=== PATIENT | male | born 1945 | race Asian ===

== ENCOUNTER 2018-08-29 11:15 | Outpatient (RCR) | payer OTHER, SELFPAY ==
--- NOTE | 2018-08-15 11:11 | PT.OIE ---
Current Diagnoses Benign paroxysmal vertigo, right ear (08/15/18) Benign paroxysmal vertigo, left ear (08/15/18) Dizziness and giddiness (08/15/18) Provider Visit Care Team Role Provider Type Sumanth Acevedo MD Primary Care Provider Non-Staff Specialty: Family Practice Address: [address] [place] [address], [address], [place], [address] Email: Ziyad Perales MD Attending Provider Physician Specialty: Ear, Nose, Throat Address: [address] [place] [address], [address] Email: Physical Therapy Initial Evaluation PT-OP-A Visit Information Start: 08/15/18 10:43 Freq: Status: Active Protocol: Document 08/15/18 09:45 DCW (Rec: 08/15/18 11:11 DCW [id number]) Out-Patient Physical Therapy Visit Information Visit Information Visit Type Initial Evaluation Visit Start Time 09:45 Visit Stop Time 10:30 Total Visit Minutes 45 Visit Number 1 Number of OFFICE SERVICES ASSOCIATE Visits 0 Evaluation Information Evaluation Date 08/15/18 PT-OP-B Current Condition Start: 08/15/18 10:43 Freq: Status: Active Protocol: Document 08/15/18 09:45 DCW (Rec: 08/15/18 11:11 DCW [id number]) Current Condition History of Current Condition Onset Date one year Current Complaints Position-dependent vertigo History of Current Condition Pt is a 72 year old male complaining of a one year history of motion-induced vertigo. Pt reports episodes last a few seconds. Symptoms are provoked by laying down or turning in bed. Pt reports that approximately once a month, he has episodes of dizziness, with each episode lasting a few seconds, but the overall dizziness with movement lasting for 3-5 days, and then he is fine for another month. Pt does admit to nausea and vomiting occasionally during dizziness. Pt denies recent hearing changes, tinnitus, diplopia, dysarthria, discoordination, or decreased mentation/ consciousness. Pt reports symptoms are waxing/waning in nature. Pt was evaluated and treated for BPPV at [facility] by Dr Perales, however following unsuccessful treatment, pt was referred to vestibular therapy at this clinic. Prior Treatments and Tests Two negative MRIs, Joselito maneuver, audiogram Treatment Goals Patient/Caregiver Goals Pt would like to eliminate his position-dependent vertigo Current Functional Impairments (Reported) Functional Limitations- Mobility/Gait Vertigo when laying down/ rolling in bed PT-OP-C Subjective Start: 08/15/18 10:43 Freq: Status: Active Protocol: Document 08/15/18 09:45 DCW (Rec: 08/15/18 11:11 DCW [id number]) OP-PT Subjective Patient Comments Patient Reported Progress Same Patient Questionnaires Dizziness Handicap Inventory DHI Score 20% DHI Functional Impairment 20 to 39% Impaired (Score 20- 39) OP-PT Pain Assessment Pain Assessment Grid Paper Pain Assessment Grid Completed No PT-OP-O Vestibular Start: 08/15/18 10:43 Freq: Status: Active Protocol: Document 08/15/18 09:45 DCW (Rec: 08/15/18 11:11 DCW [id number]) Vestibular Assessment Screening Tests Vestibular Artery Screen Negative Auditory Tests Allen Test Negative Rinne Test Negative Air Conduction Results Equal Visual Testing Smooth Pursuits Horizontal Negative Smooth Pursuits Vertical Negative Saccades Horizontal Negative Gaze Evoked Nystagmus With Fixation Negative Gaze Evoked Nystagmus Without Fixation Negative Heave Test Negative Thrust Head Negative Head Shake Negative Positional Testing Taylor-Hallpike Positive Left Positive Right Downbeating < 60 Seconds PT-OP-Q Treatments Start: 08/15/18 10:43 Freq: Status: Active Protocol: Document 08/15/18 09:45 DCW (Rec: 08/15/18 11:11 DCW [id number]) Canalithic Repositioning BPPV Treatment Joselito Affected Canal(s) Bilateral Anterior Canal? Reps x1 Other Affected Canal(s) Bilateral Anterior Canal? Reps x3 Comments Deep Head Hang PT-OP-T Assessment and Plan Start: 08/15/18 10:43 Freq: Status: Active Protocol: Document 08/15/18 09:45 DCW (Rec: 08/15/18 11:11 DCW [id number]) Physical Therapy Assessment Rehab Potential Rehabilitation Potential Good Evaluation Complexity Number of Personal Factors/Comorbidities 1-2 Number of Body Systems Impaired 1-2 Clinical Presentation at Evaluation Unstable Impairments Impairments Vestibular Goals Two Impairment Latonya-Hallpike testing Short Term Goal (STG) Negative hallpike bilaterally STG Duration 09/15/18 One Impairment Bed Mobility Short Term Goal (STG) Pt to experience no episodes of vertigo when getting into bed for one month STG Duration 09/15/18 Assessment Summary Assessment During bilateral Taylor-Hallpike tests, pt complained of vertigo and demonstrated down- beating, nystagmus lasting approximately 15 seconds with minimal latency period, which may be suggestive of a diagnosis of bilateral anterior canal BPPV, canalithiasis-type. Anterior canal BPPV, however, is incredibly rare, and having it bilaterally would be incredibly unusual. Other concerns are that down-beating nystagmus could be a sign of centrally-caused vertigo, however pt exhibited no other central signs, and has two clean MRIs over the past year. Pt was treated with a deep head-hang maneuver x3, and each successive retest showed a diminished response, which may indicate successful treatment, however it may also just be a fatigued response to stimuli. Will continue to treat pt and further test in hopes of obtaining a more specific diagnosis, or confirming bilateral anterior canal BPPV. Physical Therapy Plan Frequency and Duration Frequency of Treatment 1x/Week Duration of Treatment Two months Plan of Care Start Date 08/15/18 Plan of Care End Date 10/13/18 Therapeutic Interventions Therapeutic Interventions Balance Training Home Exercise Program Patient/Caregiver Education Self-Care/Home Management Vestibular Rehabilitation Next Visit Focus/Plan Next Note Type Treatment Note Next Visit Plan Positional testing, CRM, Vestibular rehabilitation
--- NOTE | 2018-08-15 11:12 | PT.OPPOC ---
Current Diagnoses Benign paroxysmal vertigo, right ear (08/15/18) Benign paroxysmal vertigo, left ear (08/15/18) Dizziness and giddiness (08/15/18) Provider Visit Care Team Role Provider Type Sumanth Acevedo MD Primary Care Provider Non-Staff Specialty: Family Practice Address: [facility], [address], [place], [address] Email: Ziyad Perales MD Attending Provider Physician Specialty: Ear, Nose, Throat Address: [address] [place] [address], [id number] Email: Plan Of Care PT-OP-T Assessment and Plan Start: 08/15/18 10:43 Freq: Status: Active Protocol: Document 08/15/18 09:45 DCW (Rec: 08/15/18 11:11 DCW [id number]) Physical Therapy Assessment Rehab Potential Rehabilitation Potential Good Evaluation Complexity Number of Personal Factors/Comorbidities 1-2 Number of Body Systems Impaired 1-2 Clinical Presentation at Evaluation Unstable Impairments Impairments Vestibular Goals Two Impairment [place]-Hallpike testing Short Term Goal (STG) Negative hallpike bilaterally STG Duration 09/15/18 One Impairment Bed Mobility Short Term Goal (STG) Pt to experience no episodes of vertigo when getting into bed for one month STG Duration 09/15/18 Assessment Summary Assessment During bilateral [place]-Hallpike tests, pt complained of vertigo and demonstrated down- beating, nystagmus lasting approximately 15 seconds with minimal latency period, which may be suggestive of a diagnosis of bilateral anterior canal BPPV, canalithiasis-type. Anterior canal BPPV, however, is incredibly rare, and having it bilaterally would be incredibly unusual. Other concerns are that down-beating nystagmus could be a sign of centrally-caused vertigo, however pt exhibited no other central signs, and has two clean MRIs over the past year. Pt was treated with a deep head-hang maneuver x3, and each successive retest showed a diminished response, which may indicate successful treatment, however it may also just be a fatigued response to stimuli. Will continue to treat pt and further test in hopes of obtaining a more specific diagnosis, or confirming bilateral anterior canal BPPV. Physical Therapy Plan Frequency and Duration Frequency of Treatment 1x/Week Duration of Treatment Two months Plan of Care Start Date 08/15/18 Plan of Care End Date 10/13/18 Therapeutic Interventions Therapeutic Interventions Balance Training Home Exercise Program Patient/Caregiver Education Self-Care/Home Management Vestibular Rehabilitation Next Visit Focus/Plan Next Note Type Treatment Note Next Visit Plan Positional testing, CRM, Vestibular rehabilitation Plan of Care Dates Plan of Care Start Date 08/15/18 Plan of Care End Date 10/13/18 Please Sign and Return: I have reviewed this Plan of Care and certify that the skilled therapy services above are required to meet the patient?s needs. Physician Signature Date Printed Name and Credentials Clinical Instructor Signature Printed Name and Credentials
--- NOTE | 2018-08-29 11:49 | PT.OTN ---
Current Diagnoses Benign paroxysmal vertigo, left ear (08/29/18) Physical Therapy Treatment Note PT-OP-A Visit Information Start: 08/15/18 10:43 Freq: Status: Active Protocol: Document 08/29/18 11:15 DCW (Rec: 08/29/18 11:49 DCW [id number]) Out-Patient Physical Therapy Visit Information Visit Information Visit Type Treatment Note Visit Start Time 11:15 Visit Stop Time 11:40 Total Visit Minutes 25 Visit Number 2 Number of MAINTENANCE SHOP CLERK Visits 0 Evaluation Information Evaluation Date 08/15/18 PT-OP-B Current Condition Start: 08/15/18 10:43 Freq: Status: Active Protocol: Document 08/15/18 09:45 DCW (Rec: 08/15/18 11:11 DCW [id number]) Current Condition History of Current Condition Onset Date one year Current Complaints Position-dependent vertigo History of Current Condition Pt is a 72 year old male complaining of a one year history of motion-induced vertigo. Pt reports episodes last a few seconds. Symptoms are provoked by laying down or turning in bed. Pt reports that approximately once a month, he has episodes of dizziness, with each episode lasting a few seconds, but the overall dizziness with movement lasting for 3-5 days, and then he is fine for another month. Pt does admit to nausea and vomiting occasionally during dizziness. Pt denies recent hearing changes, tinnitus, diplopia, dysarthria, discoordination, or decreased mentation/ consciousness. Pt reports symptoms are waxing/waning in nature. Pt was evaluated and treated for BPPV at [facility] by Dr Perales, however following unsuccessful treatment, pt was referred to vestibular therapy at this clinic. Prior Treatments and Tests Two negative MRIs, Joselito maneuver, audiogram Treatment Goals Patient/Caregiver Goals Pt would like to eliminate his position-dependent vertigo Current Functional Impairments (Reported) Functional Limitations- Mobility/Gait Vertigo when laying down/ rolling in bed PT-OP-C Subjective Start: 08/15/18 10:43 Freq: Status: Active Protocol: Document 08/29/18 11:15 DCW (Rec: 08/29/18 11:49 DCW [id number]) OP-PT Subjective Patient Comments Patient Comments Pt reports he still might be getting a little dizzy sometimes, but he isn't quite sure. PT-OP-O Vestibular Start: 08/15/18 10:43 Freq: Status: Active Protocol: Document 08/29/18 11:15 DCW (Rec: 08/29/18 11:49 DCW [id number]) Vestibular Assessment Visual Testing Heave Test Negative Thrust Head Negative Positional Testing Latonya-Hallpike Negative Left Negative Right Rolling Test Negative Left Negative Right PT-OP-Q Treatments Start: 08/15/18 10:43 Freq: Status: Active Protocol: Document 08/15/18 09:45 DCW (Rec: 08/15/18 11:11 DCW [id number]) Canalithic Repositioning BPPV Treatment Joselito Affected Canal(s) Bilateral Anterior Canal? Reps x1 Other Affected Canal(s) Bilateral Anterior Canal? Reps x3 Comments Deep Head Hang PT-OP-T Assessment and Plan Start: 08/15/18 10:43 Freq: Status: Active Protocol: Document 08/29/18 11:15 DCW (Rec: 08/29/18 11:49 DCW [id number]) Physical Therapy Assessment Goals Two Impairment [place]-Hallpike testing Short Term Goal (STG) Negative hallpike bilaterally STG Duration 09/15/18 One Impairment Bed Mobility Short Term Goal (STG) Pt to experience no episodes of vertigo when getting into bed for one month STG Duration 09/15/18 Assessment Summary Assessment Pt positional testing was entirely negative today, no complaints of vertigo or visible nystagmus. Pt admits his recent symptoms may have been more light-headedness from sitting up quickly, but he is not sure. Pt instructed to call within the next more for a follow-up appointment if symptoms return, or he will be discharged at that time. Physical Therapy Plan Frequency and Duration Frequency of Treatment 1x/Week Duration of Treatment Two months Plan of Care Start Date 08/15/18 Plan of Care End Date 10/13/18 Therapeutic Interventions Therapeutic Interventions Balance Training Home Exercise Program Patient/Caregiver Education Self-Care/Home Management Vestibular Rehabilitation Next Visit Focus/Plan Next Note Type Treatment Note Next Visit Plan Positional testing, CRM, Vestibular rehabilitation
--- NOTE | 2018-12-03 13:57 | PT.OPDS ---
Current Diagnoses Benign paroxysmal vertigo, left ear (08/29/18) Provider Visit Care Team Role Provider Type Sumanth Acevedo MD Primary Care Provider Non-Staff Specialty: Family Practice Address: [address] [place] [address], [address], [place], [address] Email: Ziyad Perales MD Attending Provider Physician Specialty: Ear, Nose, Throat Address: [address] [place] [address], [id number] Email: Visit Number Visit Number 2 Discharge Summary PT-OP-B Current Condition Start: 08/15/18 10:43 Freq: Status: Active Protocol: Document 08/15/18 09:45 DCW (Rec: 08/15/18 11:11 DCW [id number]) Current Condition History of Current Condition Onset Date one year Current Complaints Position-dependent vertigo History of Current Condition Pt is a 72 year old male complaining of a one year history of motion-induced vertigo. Pt reports episodes last a few seconds. Symptoms are provoked by laying down or turning in bed. Pt reports that approximately once a month, he has episodes of dizziness, with each episode lasting a few seconds, but the overall dizziness with movement lasting for 3-5 days, and then he is fine for another month. Pt does admit to nausea and vomiting occasionally during dizziness. Pt denies recent hearing changes, tinnitus, diplopia, dysarthria, discoordination, or decreased mentation/ consciousness. Pt reports symptoms are waxing/waning in nature. Pt was evaluated and treated for BPPV at [facility] by Dr Perales, however following unsuccessful treatment, pt was referred to vestibular therapy at this clinic. Prior Treatments and Tests Two negative MRIs, Joselito maneuver, audiogram Treatment Goals Patient/Caregiver Goals Pt would like to eliminate his position-dependent vertigo Current Functional Impairments (Reported) Functional Limitations- Mobility/Gait Vertigo when laying down/ rolling in bed PT-OP-C Subjective Start: 08/15/18 10:43 Freq: Status: Active Protocol: Document 08/29/18 11:15 DCW (Rec: 08/29/18 11:49 DCW [id number]) OP-PT Subjective Patient Comments Patient Comments Pt reports he still might be getting a little dizzy sometimes, but he isn't quite sure. PT-OP-O Vestibular Start: 08/15/18 10:43 Freq: Status: Active Protocol: Document 08/29/18 11:15 DCW (Rec: 08/29/18 11:49 DCW [id number]) Vestibular Assessment Visual Testing Heave Test Negative Thrust Head Negative Positional Testing Latonya-Hallpike Negative Left Negative Right Rolling Test Negative Left Negative Right PT-OP-T Assessment and Plan Start: 08/15/18 10:43 Freq: Status: Active Protocol: Document 12/03/18 13:55 DCW (Rec: 12/03/18 13:57 DCW [id number]) Physical Therapy Assessment Goals Two Impairment Latonya-Hallpike testing Short Term Goal (STG) Negative hallpike bilaterally STG Duration 09/15/18 One Impairment Bed Mobility Short Term Goal (STG) Pt to experience no episodes of vertigo when getting into bed for one month STG Duration 09/15/18 Assessment Summary Assessment At his most recent follow-up appointment, pt was instructed to call back within one month to schedule more visits if his symptoms returned. Pt has now not been seen in three months, and will be discharged from skill vestibular therapy at this time. Physical Therapy Plan Discharge Physical Therapy Discharge Reasons No Longer Attending PT Next Visit Focus/Plan Next Note Type Discharge Summary
== END 2018-12-09 10:37 | disposition home or self-care (01) ==
LOC: PHYS 11:15
PROVIDERS: PCP Family Medicine; Visit Provider Otolaryngology
DX: H81.12 Benign paroxysmal vertigo, left ear (principal)
CPT/HCPCS: 95992; 97140; 97161